=== PATIENT | male | born 1995 | race Caucasian/White ===

== ENCOUNTER 2017-05-07 13:05 | Emergency (ER) | payer OTHER ==
[2017-05-07] MEDS ORDERED: TRAMADOL HCL 50 MG TABLET PO ONE (14:20)
[2017-05-07] MEDS ORDERED: LIDOCAINE 1% INJ-PF (10 MG/ML) 30 ML SDV INJ ONE (14:20)
--- NOTE | 2017-05-07 14:21 | ER Document Report ---
ED Wound - General Chief Complaint: Laceration Stated Complaint: WC HAND LACERATION Time Seen by Provider: 05/07/17 14:04 TRAVEL OUTSIDE OF THE [place] IN LAST 30 DAYS: No - HPI Patient complains to provider of: Laceration - left hand over the third metacarpal phalanx joint Occurred: Just prior to arrival Onset/Duration: Sudden Quality of pain: No pain Severity: None Pain Level: Denies Context: Injury - crush injury with a filing cabinet Capillary refill: < 3 seconds Sensations intact: Yes Distal pulses present: Yes Notes: last tetanus October 2016 - Related Data Allergies/Adverse Reactions: No Known Allergies Allergy (Unverified 05/07/17 13:23) Past Medical History - Social History Smoking Status: Current Every Day Smoker Chew tobacco use (# tins/day): No Frequency of alcohol use: None Drug Abuse: None Family History: Reviewed & Not Pertinent Patient has suicidal ideation: No Patient has homicidal ideation: No Renal/ Medical History: Denies: Hx Peritoneal Dialysis Surgical Hx: Negative - Immunizations Hx Diphtheria, Pertussis, Tetanus Vaccination: Yes - 2016 Review of Systems - Review of Systems Constitutional: No symptoms reported Musculoskeletal: See HPI Skin: See HPI Physical Exam - Vital signs Vitals: Temp Pulse Resp BP Pulse Ox 99.5 F 58 L 20 140/78 H 98 05/07/17 13:17 05/07/17 13:17 05/07/17 13:17 05/07/17 13:17 05/07/17 13:17 - General General appearance: Appears well In distress: None - Cardiovascular Pulses: Normal: Radial Normal capillary refill: Yes - Extremities Forearm: Normal, Nontender Wrist: Normal, Nontender Hand: Nontender, Laceration, Tendon deficit - extensor tendon overlying metacarpal phalanx joint of the third digit, Other - normal ROM, 4/5 strength to resistance of the affects finger 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 Concern for full-thickness tendon injury given presence of lacerated tendon on exam that moves with the finger. Laceration was closed using 6-0 nylon at the bedside. Discussed with patient to follow-up with orthopedics regarding tendon injury. Patient placed in a splint. Patient agrees with plan. Stable for discharge home - Vital Signs Vital signs: Temp Pulse Resp BP Pulse Ox 99.5 F 58 L 20 140/78 H 98 05/07/17 13:05/07/17 13:05/07/17 13:05/07/17 13:05/07/17 13:17 Procedures - Immobilization Left Hand 3rd digit Pre-Proc Neuro Vasc Exam: Normal Immobilizer type: Finger protection Performed by: PCT Post-Proc Neuro Vasc Exam: Normal Alignment checked and good: Yes - Laceration/Wound Repair Left 3rd digit Wound length (cm): 1.5 Wound's Depth, Shape: Superficial, Other - tendon injury Laceration pre-procedure: Sterile PPE donned, Betadine prep applied Anesthetic type: 1% Lidocaine Volume Anesthetic (mLs): 3 Wound explored: Clean, No foreign body removed Wound Debrided: Minimal Suture Size/Type: 6:0, Nylon Number of Sutures: 4 Post-procedure wound care: Sterile dressing applied, Splint applied Post-procedure NV exam normal: Yes Complications: No Discharge - Discharge Clinical Impression: Laceration, Tendon injury Condition: Good Disposition: HOME, SELF-CARE Instructions: Tendon Laceration Referral ([facility]), Tendon Laceration ([facility]) Additional Instructions: [facility] Address: [facility] [address], [place] [address] LACERATION CARE: Your laceration has been sutured to keep the skin edges aligned during healing. The time of suture removal depends on the nature and location of your cut. Please follow the care instructions the doctor has outlined for you and return for further care, according to the schedule you've been given. Keep the wound and dressing clean. Unless you were told otherwise, you may shower daily, blotting the wound dry with a clean, unused towel. At other times, If the dressing gets wet or blood soaked, remove it and blot the wound dry, then reapply a new dressing. Unless you were instructed otherwise, dressings should be changed at least daily. If any signs of infection occur (swelling, redness, drainage, increasing tenderness, red streaks, tender lumps in the armpit or groin above the laceration, or fever), see the doctor immediately. SOAP CLEANSING: Gently wash the wound daily using a mild soap (like Ivory, Phisoderm, Neutrogena). Use warm water, rubbing gently until all debris, ooze, and crusting have been washed from the wound. Allow to dry briefly (about 10 minutes) after cleaning. Repeat this cleansing at least three times a day for the first two days and then once or twice a day. ANTIBIOTIC OINTMENT PROTECTION: Your wounds are such that dressing them is not practical or optional. After cleansing, you should apply a thin coating of antibiotic ointment ( Bacitracin, not Neosporin) to the wounds at least three times daily. This lessens infection risk, and may decrease the amount of scarring. Use a q-tip or dull butter knife, not your finger, to apply this ointment. Any debris or ooze which builds up in the ointment should be gently rubbed off with a sterile gauze pad. Harder crusting may need to be gently scrubbed off with a clean wash cloth with soap and warm water, perhaps applying a warm, wet wash cloth to the wound for ten minutes first. Development of redness, severe itching, or blistering may mean allergy to the ointment. See the doctor. FOLLOW-UP CARE: Please see ortho as soon as posisble for evaluation of your tendon injury Your sutures should be removed in 8-10 days. To facilitate a timely removal of your sutures, you may return to the Emergency Department at [facility]. You do not need to call for an appointment, but the best time to come in for suture removal is early in the morning. If you have been referred to another physician for follow-up care, call that physicians office for an appointment as you were instructed. If you experience a significant change in your laceration, or if you are concerned there may be an infection (swelling, redness, drainage, increasing tenderness, red streaks, tender lumps in the armpit or groin above the laceration, or fever) , return to the Emergency Department immediately re-evaluation. Prescriptions: Cephalexin Monohydrate [Keflex 500 mg Capsule] 500 mg PO QID #20 capsule Tramadol HCl 50 mg PO BID #10 tablet Forms: Return to Work Referrals: SETH ANTONIO DO [ACTIVE STAFF] - Follow up tomorrow
[2017-05-07 16:23] VITALS: BP 136/72
== END 2017-05-07 16:20 | disposition home or self-care (01) ==
LOC: ER 13:05
PROC: 0HQGXZZ Repair Left Hand Skin, External Approach (ICD-10-PCS; principal; 2017-05-07)
DX: S66.922A Laceration of unspecified muscle, fascia and tendon at wrist and hand level, left hand, initial encounter (principal); S61.412A Laceration without foreign body of left hand, initial encounter; W45.8XXA Other foreign body or object entering through skin, initial encounter; Y93.89 Activity, other specified; Y92.511 Restaurant or cafe as the place of occurrence of the external cause; Y99.0 Civilian activity done for income or pay; F17.200 Nicotine dependence, unspecified, uncomplicated
CPT/HCPCS: 99282; 12001; J3490